=== PATIENT | female | born 1970 ===

== ENCOUNTER 2017-04-11 07:33 | Day surgery (SDC) | payer MEDICARE, OTHER ==
[2017-04-11 07:58] VITALS: BMI 23.8
[2017-04-11] MEDS ORDERED: Propofol 10 mg/ml Inj (20 ML) ONE ×2 (08:59→09:19)
[2017-04-11] MEDS ORDERED: Lactated Ringer's 500 ML IV ONE (09:03)
[2017-04-11 09:14] VITALS: O2SAT 100
[2017-04-11 09:46] VITALS: TEMP 97.5
[2017-04-11 10:37] VITALS: RESP 12
[2017-04-11 10:42] VITALS: BP 141/77; PULSE 67
== END 2017-04-11 10:35 | disposition home or self-care (01) ==
LOC: C.ENDO 07:33
PROVIDERS: ATTEND Internal Medicine Gastroenterology
DX: Z86.010 Personal history of colon polyps (principal); R14.0 Abdominal distension (gaseous); K29.70 Gastritis, unspecified, without bleeding; Z12.11 Encounter for screening for malignant neoplasm of colon; K64.8 Other hemorrhoids
CPT/HCPCS: 43239; 45378; 82948; 84703; 88305; 88313; 88342; J2001; J2704; J3010; J7120